=== PATIENT | female | born 1970 | race Caucasian/White ===

== ENCOUNTER → 2025-04-22 | Outpatient (CLI) | payer MEDICAID, SELFPAY ==
[2025-04-22 12:36] VITALS: PULSE 68; PULSE 70; PULSE 77; PULSE 81; PULSE 88; PULSE 89; PULSE 90; PULSE 95; O2SAT 93; O2SAT 94; O2SAT 95; O2SAT 96; O2SAT 97; O2SAT 98
--- NOTE | 2025-05-02 13:20 | PCM.PSN.6M ---
PSN 6 Minute Walk Test 6 Minute Walk Test 6 Minute Walk Test: 6 Minute Walk Test PSN:6-Minute Walk Test Start: 04/22/25 12:35 Freq: Status: Discharge Protocol: RESP.[id number] Document 04/22/25 12:36 ALTAGRACIA (Rec: 04/22/25 12:39 ALTAGRACIA [id number]) 6 Minute Walk Test Date Performed 04/22/25 Time Performed 12:15 Height 5 ft 5 in Weight: 170 lb Weight in Pounds [address]: Caleb Garza Assistive device None used: Pre-test Oxygen Delivery Room Air Method Pulse Ox (%) 97 Pulse Rate (60-100 70 beats/min) Dyspnea Marizol Scale ( 0 0-10) Exertion Marizol Scale 6 (6-20) 1st minute Oxygen Delivery Room Air Method Pulse Ox (%) 96 Pulse Rate (60-100 77 beats/min) 2nd minute Oxygen Delivery Room Air Method Pulse Ox (%) 98 Pulse Rate (60-100 81 beats/min) 3rd minute Oxygen Delivery Room Air Method Pulse Ox (%) 97 Pulse Rate (60-100 88 beats/min) 4th minute Oxygen Delivery Room Air Method Pulse Ox (%) 95 Pulse Rate (60-100 89 beats/min) 5th minute Oxygen Delivery Room Air Method Pulse Ox (%) 94 Pulse Rate (60-100 90 beats/min) 6th minute Oxygen Delivery Room Air Method Pulse Ox (%) 93 Pulse Rate (60-100 95 beats/min) Dyspnea Marizol Scale ( 3 0-10) Exertion Marizol Scale 12 (6-20) Post-test Oxygen Delivery Room Air Method Pulse Ox (%) 97 Pulse Rate (60-100 68 beats/min) Full Laps Walked 23 Partial Lap, Number 3 of Tiles Walked Total Distance 1360 Walked (ft) Interpretation Interpretation: The patient ambulated 1360 feet over the course of 6 minutes beginning on room air without assistive devices. Pretesting oxygen saturation was noted to be 97% on room air. With ambulation, the [place] oxygen saturation was 93%. This represents a significant exertional oxygen desaturation, consistent with a pulmonary limitation to exercise tolerance. Recommendations Recommendations: There is no indication for the use of supplemental oxygen at this time.
== END | disposition home or self-care (01) ==
LOC: PSN 11:47
PROVIDERS: PCP Student in an Organized Health Care Education/Training Program; Referring Provider Internal Medicine Critical Care Medicine; Visit Provider Internal Medicine Critical Care Medicine
DX: J98.4 Other disorders of lung (principal)
CPT/HCPCS: 94618